=== PATIENT | male | born 1985 | race Caucasian/White ===

== ENCOUNTER 2019-10-15 20:01 | Emergency (ER) | payer OTHER ==
[2019-10-15 20:11] VITALS: BP 144/78
--- NOTE | 2019-10-15 20:39 | EDM.PDOC ---
ED HPI GENERAL MEDICAL PROBLEM - General Chief Complaint: Chest Pain Stated Complaint: CHEST PAIN Time Seen by Provider: 10/15/19 20:14 Source of Information: Reports: Patient History Limitations: Reports: No Limitations - History of Present Illness INITIAL COMMENTS - FREE TEXT/NARRATIVE: Mr. Stoner is a very pleasant 34-year-old gentleman who who presents the ED stating that he developed sharp left upper chest pain around 17:30 this evening, while in his car. He states that the sensation is a pain, not a discomfort, and that has been coming and going, typically lasting 1 to 2 seconds, then recurring every 5 to 10 seconds. He has not identified any modifiers. No associated symptoms, such as dyspnea, nausea, diaphoresis, or sense of impending doom. No prior similar symptoms. The patient did not take any [id number] or home remedies prior to coming to the ED. Here in the ED, the patient's initial BP is found to be mildly elevated at 144/78, otherwise, he is hemodynamically stable, afebrile, saturating 96% on room air. Other than today's chest pain, the patient denies recent fever, chills, sore throat, ear pain, nasal or sinus congestion, cough, dyspnea, palpitations, nausea, vomiting, constipation, diarrhea, abdominal pain, urinary symptoms, recent weight gain or weight loss, recent bloody bowel movements or black bowel movements, recent joint aches, headaches, or rashes. The patient's PCP is BEN Pal. Left Upper Chest Pain Score (Numeric/FACES): 3 - Related Data Allergies Allergy/AdvReac Type Severity Reaction Status Date / Time No Known Allergies Allergy Verified 10/15/19 20:11 Home Meds: Home Meds . [No Known Home Meds] 10/15/19 [History] Past Medical History Respiratory History: Reports: Sleep Apnea (nightly CPAP 12 or 14) Endocrine/Metabolic History: Reports: Obesity/BMI 30+ - Past Surgical History HEENT Surgical History: Reports: Myringotomy w Tube(s) (bilateral) Social & Family History - Family History Cardiac: Reports: High Cholesterol, Hypertension, [place] - Tobacco Use Smoking Status *Q: Never Smoker Second Hand Smoke Exposure: No - Caffeine Use Caffeine Use: Reports: Coffee - Alcohol Use Alcohol Use History: Yes Alcohol Use Frequency: Socially - Recreational Drug Use Recreational Drug Use: No - Living Situation & Occupation Living situation: Reports: , with Spouse, with Family (2 kids) Occupation: Employed ([employer]) ED ROS GENERAL - Review of Systems Review Of Systems: Comprehensive ROS is negative, except as noted in HPI. ED EXAM, GENERAL - Physical Exam Exam: See Below Exam Limited By: No Limitations General Appearance: Alert, WD/WN, No Apparent Distress Eye Exam: Bilateral Eye: EOMI, Normal Inspection Ears: Normal External Exam, Hearing Grossly Normal Nose: Normal Inspection Throat/Mouth: Normal Inspection, Normal Lips, Normal Voice, No Airway Compromise Head: Atraumatic, Normocephalic Neck: Normal Inspection, Full Range of Motion Respiratory/Chest: No Respiratory Distress, Lungs Clear, Normal Breath Sounds, No Accessory Muscle Use, Chest Non-Tender (additionally, pain is not induced with the patient pressing his hands together in front of his chest with outstretched arms, or by crossing his left upper extremity across his chest) Cardiovascular: Normal Peripheral Pulses, Regular Rate, Rhythm, No Edema, No Gallop, No JVD, No Murmur, No Rub Peripheral Pulses: 3+: Radial (L), Radial (R) GI/Abdominal: Normal Bowel Sounds, Soft, Non-Tender, No Organomegaly, No Distention, No Abnormal Bruit, No Mass (Male) Exam: Deferred Rectal (Males) Exam: Deferred Back Exam: Normal Inspection, Full Range of Motion, NT Extremities: Normal Inspection, Normal Range of Motion, No Pedal Edema, Normal Capillary Refill Neurological: Alert, Oriented, Normal Cognition, No Motor/Sensory Deficits Psychiatric: Normal Affect Skin Exam: Warm, Dry, Intact, Normal Color, No Rash EKG INTERPRETATION EKG Date: 10/15/19 Time: 20:24 Rhythm: NSR Rate (Beats/Min): 67 [place]: Normal P-Wave: Present QRS: Other (Late transition) ST-T: Normal QT: Normal Comparison: NA - No Prior EKG Course - Vital Signs Last Recorded V/S: Last Vital Signs Temp 36.5 C 10/15/19 20:08 Pulse 71 10/15/19 22:45 Resp 27 H 10/15/19 22:45 BP 144/78 H 10/15/19 20:08 Pulse Ox 96 10/15/19 22:45 - Orders/Labs/Meds Orders: Active Orders 24 hr Category Date Time Status EKG Documentation Completion [RC] ASDIRECTED Care 10/15/19 20:31 Active Chest 2V [CR] Stat Exams 10/15/19 20:34 Taken EKG 12 Lead [EK] Stat Ther 10/15/19 20:31 Ordered Labs: Laboratory Tests 10/15/19 10/15/19 Range/Units 20:50 20:50 D-Dimer, Quantitative < 0.19 L (0.19-0.50) mg/L Sodium 142 (136-145) mEq/L Potassium 3.8 (3.5-5.1) mEq/L Chloride 104 (98-107) mEq/L Carbon Dioxide 28 (21-32) mEq/L Anion Gap 13.8 (5-15) BUN 19 H (7-18) mg/dL Creatinine 1.1 (0.7-1.3) mg/dL Est Cr Clr Drug Dosing 107.94 mL/min Estimated GFR (MDRD) > 60 (>60) mL/min BUN/Creatinine Ratio 17.3 (14-18) Glucose 131 H (74-106) mg/dL Calcium 8.2 L (8.5-10.1) mg/dL Total Bilirubin 0.5 (0.2-1.0) mg/dL AST 38 H (15-37) U/L ALT 89 H (16-63) U/L Alkaline Phosphatase 72 (46-116) U/L Troponin I < 0.017 (0.00-0.056) ng/mL Total Protein 7.1 (6.4-8.2) g/dl Albumin 3.8 (3.4-5.0) g/dl Globulin 3.3 gm/dL Albumin/Globulin Ratio 1.2 (1-2) - Re-Assessments/Exams Free Text/Narrative Re-Assessment/Exam: 10/15/19 20:35 As above, the patient developed sharp, briefly intermittent upper left chest pain around 17:30 tonight. His presentation is not suggestive of an acute cardiac event, and his ECG is completely normal. I have ordered a work-up that includes a D-dimer and a chest x-ray. 10/15/19 22:46 Two-view chest radiograph appears to be grossly normal. The cardiac silhouette is within normal limits. No pulmonary vascular congestion. No pleural effusions. No focal infiltrate. No pneumothorax. Formal read per the Radiologist pending. The patient's CMP is remarkable for a BUN slightly elevated at 19, but with a Cr normal at 1.1. His blood glucose is slightly elevated at 131. His AST/ALT are slightly elevated at 38/89, respectively, with the remainder of his CMP being unremarkable. His troponin is undetectably low. His D-dimer is undetectably low. 10/15/19 22:48 Test results discussed with the patient. As above, today's work-up is unremarkable. Physical exam, and ER tests, I suspect that his chest pain is musculoskeletal in etiology. I recommended that he take [id number] ibuprofen as needed for discomfort. I also offered to prescribe for him a muscle relaxant, but he declined. He would prefer to stick with just ibuprofen. I will discharge him home. Departure - Departure Time of Disposition: 22:49 Disposition: Home, Self-Care 01 Condition: Good Clinical Impression: Musculoskeletal chest pain - Discharge Information *PRESCRIPTION DRUG MONITORING PROGRAM REVIEWED*: Not Applicable *COPY OF PRESCRIPTION DRUG MONITORING REPORT IN PATIENT TRINITY: Not Applicable Instructions: Chest Wall Pain, [id number] Referrals: Viktor Iqbal PA-C [Primary Care Provider] - Forms: ED Department Discharge Additional Instructions: You were seen in the emergency room after developing sharp intermittent left- sided chest pain. Work-up in the ER included blood work, a chest x-ray, and an ECG. Your entire work-up was unremarkable. You have not suffered a heart attack. You do not have a blood clot in your lungs. You do not have pneumonia or a collapsed lung. Based on your history, physical exam, and ER tests, the cause of your left-sided chest pain is most likely musculoskeletal. We recommend that you take kxsj-ztz-jdyrjeg ibuprofen, 3 tablets (600 mg) up to every 8 hours, with food, as needed for discomfort. If any other problems, please do not hesitate to return to the ER. Sepsis Event Note (ED) - Evaluation Sepsis Screening Result: No Definite Risk - Focused Exam Vital Signs: Vital Signs Temp Pulse Resp BP Pulse Ox 10/15/19 22:45 71 27 H 96 10/15/19 20:08 36.5 C 75 20 144/78 H 96 - My Orders Last 24 Hours: My Active Orders 10/15/19 20:31 EKG Documentation Completion [RC] ASDIRECTED EKG 12 Lead [EK] Stat 10/15/19 20:34 Chest 2V [CR] Stat - Assessment/Plan Last 24 Hours: My Active Orders 10/15/19 20:31 EKG Documentation Completion [RC] ASDIRECTED EKG 12 Lead [EK] Stat 10/15/19 20:34 Chest 2V [CR] Stat
[2019-10-15 23:12] VITALS: PULSE 71
--- NOTE | 2019-10-16 07:05 | CR ---
Chest: 2 views of the chest were obtained. Comparison: No prior chest imaging is available. Heart size and mediastinum are normal. Slight scarring is noted within the left base. Lungs otherwise are clear. Bony structures are unremarkable. Impression: 1. Nothing acute is seen on 2 view chest x-ray. Diagnostic code #2 This report was dictated in MDT
== END 2019-10-15 22:56 | disposition home or self-care (01) ==
LOC: JD.ED 20:01
DX: R07.89 Other chest pain (principal); E66.9 Obesity, unspecified; Z68.41 Body mass index [BMI] 40.0-44.9, adult
CPT/HCPCS: 36415; 71046; 71046-26; 80053; 84484; 85379; 93005; 93010; 99282; 99285-25

== ENCOUNTER 2020-05-13 07:04 | Day surgery (SDC) | payer OTHER ==
[~2020-05-13 07:04] MED LIST: Lactated Ringers 1,000 ML IV SCH; Lidocaine 1%/Sod Bicarbonate in NS 8.4% 1 ML Syringe IDERM PRN; Sodium Chloride 0.9% 10 ML Syringe FLUSH PRN
[2020-05-13] MEDS ORDERED: Bupivacaine 0.5%/EPINEPHrine 1:200,000 50 ML MDV ONE (07:17)
[2020-05-13] MEDS ORDERED: fentaNYL 250 MCG/5 ML SDV ONE (07:42)
[2020-05-13] MEDS ORDERED: Propofol 200 MG/20 ML SDV ONE (07:42)
[2020-05-13] MEDS ORDERED: Midazolam 1 MG/ML 2 ML SDV ONE (07:42)
[2020-05-13] MEDS ORDERED: Lidocaine 1% 4 ML ONE (07:49)
--- NOTE | 2020-05-13 07:56 | PCM.HP.2 ---
H&P History of Present Illness - General Date of Service: 05/13/20 Admit Problem/Dx: right breast lesion Source of Information: Patient History Limitations: Reports: No Limitations - History of Present Illness Initial Comments - Free Text/Narative: Mr. Smith was seen in clinic over one month ago regarding a right breast lesion he noted a few months ago. It is sometimes tender. He thinks maybe it has grown a little in size since he was seen. An ultrasound from a few weeks ago shows a small suspicious lesion just deep to the nipple for which excisional biopsy is recommended. - Related Data Allergies/Adverse Reactions: Allergies Allergy/AdvReac Type Severity Reaction Status Date / Time No Known Allergies Allergy Verified 05/13/20 07:43 Home Medications: Home Meds . [No Known Home Meds] 10/15/19 [History] Past Medical History - Past Health History Medical/Surgical History: Denies Medical/Surgical History HEENT History: Reports: None Cardiovascular History: Reports: High Cholesterol Respiratory History: Reports: Sleep Apnea Gastrointestinal History: Reports: None Other Genitourinary History: breast lump HEALTHCARE PROF History: Reports: None Musculoskeletal History: Reports: None Neurological History: Reports: None Psychiatric History: Reports: None Endocrine/Metabolic History: Reports: Obesity/BMI 30+ Hematologic History: Reports: None Immunologic History: Reports: None Oncologic (Cancer) History: Reports: None Dermatologic History: Reports: None - Infectious Disease History Infectious Disease History: Reports: Novel Coronavirus - Past Surgical History Head Surgeries/Procedures: Reports: None HEENT Surgical History: Reports: Myringotomy w Tube(s) Cardiovascular Surgical History: Reports: None Respiratory Surgical History: Reports: None GI Surgical History: Reports: None Female Surgical History: Reports: None Male Surgical History: Reports: None Endocrine Surgical History: Reports: None Neurological Surgical History: Reports: None Musculoskeletal Surgical History: Reports: None Oncologic Surgical History: Reports: None Dermatological Surgical History: Reports: None Social & Family History - Family History Cardiac: Reports: High Cholesterol, Hypertension, [place] - Tobacco Use Tobacco Use Status *Q: Never Tobacco User - Caffeine Use Caffeine Use: Reports: None - Recreational Drug Use Recreational Drug Use: No Drug Use in Last 12 Months: No - Living Situation & Occupation Living situation: Reports: , with Spouse, with Family (2 kids) Occupation: Employed ([employer]visor) H&P Review of Systems - Review of Systems: Review Of Systems: See Below General: Reports: No Symptoms HEENT: Reports: No Symptoms Pulmonary: Reports: No Symptoms Cardiovascular: Reports: No Symptoms Gastrointestinal: Reports: No Symptoms Genitourinary: Reports: No Symptoms Musculoskeletal: Reports: No Symptoms Skin: Reports: No Symptoms Psychiatric: Reports: No Symptoms Neurological: Reports: No Symptoms Hematologic/Lymphatic: Reports: No Symptoms Immunologic: Reports: No Symptoms Exam - Exam Exam: See Below - Vital Signs Vital Signs: Last Vital Signs Temp 36.6 C 05/13/20 07:10 Pulse 73 05/13/20 07:10 Resp 16 05/13/20 07:10 BP 140/76 05/13/20 07:10 Pulse Ox 95 05/13/20 07:10 - Exam Quality Assessment: Supplemental Oxygen General: Alert, Oriented HEENT: Conjunctiva Clear Neck: Supple, Trachea Midline Lungs: Clear to Auscultation, Normal Respiratory Effort Cardiovascular: Regular Rate, Regular Rhythm Back Exam: Normal Inspection Extremities: Normal Inspection Skin: Warm, Dry Neuro Extensive - Mental Status: Alert, Oriented x3 Sepsis Event Note - Evaluation Sepsis Screening Result: No Definite Risk - Focused Exam Vital Signs: Vital Signs Temp Pulse Resp BP Pulse Ox 05/13/20 07:10 36.6 C 73 16 140/76 95 Problem List Initiated/Reviewed/Updated: Yes Orders Last 24hrs: Active Orders 24 hr Category Date Time Status Peripheral IV Care [RC] . DIRECTED Care 05/13/20 07:00 Active Peripheral IV Care [RC] . DIRECTED Care 05/13/20 07:00 Active Verify Patient Consent Obtain [RC] ASDIRECTED Care 05/13/20 07:00 Active Verify Patient Consent Obtain [RC] ASDIRECTED Care 05/13/20 07:00 Active Lactated Ringers [Ringers, Lactated] 1,000 ml Med 05/13/20 07:00 Active IV ASDIRECTED Lidocaine 1%/Sod Bicarbonate [Buffered Lidocaine 1% in Med 05/13/20 07:00 Ac tive NS 8.4%] 0.25 ml IDERM ONETIME PRN Sodium Chloride 0.9% [Saline Flush] Med 05/13/20 07:00 Active 10 ml FLUSH ASDIRECTED PRN Medication Administration Instruction [OM.PC] Routine Oth 05/13/20 07:00 Ordered Medication Administration Instruction [OM.PC] Routine Oth 05/13/20 07:00 Ordered Peripheral IV Insertion Adult [OM.PC] Routine Oth 05/13/20 07:00 Ordered Peripheral IV Insertion Adult [OM.PC] Routine Oth 05/13/20 07:00 Ordered Medication Orders Lactated Ringer's (Ringers, Lactated) 1,000 mls @ 125 mls/hr IV ASDIRECTED JUANITA Stop: 05/13/20 23:00 Last Admin: 05/13/20 07:15 Dose: 125 mls/hr Documented by: ALEKSANDRA Lidocaine/Sodium Bicarbonate (Buffered Lidocaine 1% In Ns 8.4%) 0.25 ml IDERM ONETIME PRN PRN Reason: Prior to IV Start Stop: 05/13/20 18:00 Last Admin: 05/13/20 07:15 Dose: 0.25 ml Documented by: ALEKSANDRA Sodium Chloride (Saline Flush) 10 ml FLUSH ASDIRECTED PRN PRN Reason: Keep Vein Open Stop: 05/13/20 18:00 Assessment/Plan Comment:: Suspicious right breast lesion. Plan for excisional biopsy today. - Mortality Measure Prognosis:: Good
[2020-05-13] MEDS ORDERED: ceFAZolin 1 GM Vial ONE (08:08)
[2020-05-13] MEDS ORDERED: Ondansetron 4 MG/2 ML SDV ONE (08:21)
--- NOTE | 2020-05-13 08:47 | PCM.PREANE ---
Preanesthetic Assessment - Procedure Proposed Procedure: Right breast biopsy - Anesthesia/Transfusion/Family Hx Anesthesia History: Prior Anesthesia Without Reaction - Review of Systems General: No Symptoms Pulmonary: No Symptoms Cardiovascular: No Symptoms Gastrointestinal: No Symptoms Neurological: No Symptoms Other: Reports: None - Physical Assessment NPO Status Date: 05/12/20 NPO Status Time: 18:00 Vital Signs: Last Vital Signs Temp 97.8 F 05/13/20 07:10 Pulse 73 05/13/20 07:10 Resp 16 05/13/20 07:10 BP 140/76 05/13/20 07:10 Pulse Ox 95 05/13/20 07:10 Height: 1.88 m Weight: 146.51 kg ASA Class: 2 Mental Status: Alert & Oriented x3 Airway Class: Mallampati = 2 Dentition: Reports: Normal Dentition ROM/Head Extension: Full Lungs: Clear to Auscultation, Normal Respiratory Effort Cardiovascular: Regular Rate, Regular Rhythm - Allergies Allergies/Adverse Reactions: Allergies Allergy/AdvReac Type Severity Reaction Status Date / Time No Known Allergies Allergy Verified 05/13/20 07:43 - Acknowledgements Anesthesia Type Planned: General Anesthesia, MAC Pt an Appropriate Candidate for the Planned Anesthesia: Yes Alternatives and Risks of Anesthesia Discussed w Pt/Guardian: Yes Pt/Guardian Understands and Agrees with Anesthesia Plan: Yes PreAnesthesia Questionnaire - Past Health History Medical/Surgical History: Denies Medical/Surgical History HEENT History: Reports: None Cardiovascular History: Reports: High Cholesterol Respiratory History: Reports: Sleep Apnea Gastrointestinal History: Reports: None Other Genitourinary History: breast lump [employer]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: Reports: None Musculoskeletal History: Reports: None Neurological History: Reports: None Psychiatric History: Reports: None Endocrine/Metabolic History: Reports: Obesity/BMI 30+ Hematologic History: Reports: None Immunologic History: Reports: None Oncologic (Cancer) History: Reports: None Dermatologic History: Reports: None - Infectious Disease History Infectious Disease History: Reports: Novel Coronavirus - Past Surgical History Head Surgeries/Procedures: Reports: None HEENT Surgical History: Reports: Myringotomy w Tube(s) Cardiovascular Surgical History: Reports: None Respiratory Surgical History: Reports: None GI Surgical History: Reports: None Female Surgical History: Reports: None Male Surgical History: Reports: None Endocrine Surgical History: Reports: None Neurological Surgical History: Reports: None Musculoskeletal Surgical History: Reports: None Oncologic Surgical History: Reports: None Dermatological Surgical History: Reports: None - SUBSTANCE USE Tobacco Use Status *Q: Never Tobacco User Recreational Drug Use History: No - HOME MEDS Home Medications: Home Meds oxyCODONE 5 mg PO Q4H PRN #10 tab 05/13/20 [Rx] - CURRENT (IN HOUSE) MEDS Current Meds: Current Medications Lactated Ringer's (Ringers, Lactated) 1,000 mls @ 125 mls/hr IV ASDIRECTED [facility] Stop: 05/13/20 23:00 Last Admin: 05/13/20 07:15 Dose: 125 mls/hr Documented by: Lidocaine/Sodium Bicarbonate (Buffered Lidocaine 1% In Ns 8.4%) 0.25 ml IDERM ONETIME PRN PRN Reason: Prior to IV Start Stop: 05/13/20 18:00 Last Admin: 05/13/20 07:15 Dose: 0.25 ml Documented by: Sodium Chloride (Saline Flush) 10 ml FLUSH ASDIRECTED PRN PRN Reason: Keep Vein Open Stop: 05/13/20 18:00 Discontinued Medications Bupivacaine HCl/Epinephrine Bitart (Marcaine 0.5%/Epinephrine 1:200,000) Confirm Administered Dose 50 ml .ROUTE .STK-MED ONE Stop: 05/13/20 07:18 Cefazolin Sodium (Ancef) Confirm Administered Dose 3 gm .ROUTE .STK-MED ONE Stop: 05/13/20 08:09 Fentanyl (Sublimaze) Confirm Administered Dose 250 mcg .ROUTE .STK-MED ONE Stop: 05/13/20 07:43 Glycopyrrolate (Robinul) Confirm Administered Dose 0.4 mg .ROUTE .STK-MED ONE Stop: 05/13/20 07:50 Lactated Ringer's (Ringers, Lactated) 1,000 mls @ 125 mls/hr IV ASDIRECTED [facility] Stop: 04/24/20 23:00 Lidocaine HCl (Xylocaine-Mpf 1%) Confirm Administered Dose 4 mls @ as directed .ROUTE .STK-MED ONE Stop: 05/13/20 07:50 Lidocaine/Sodium Bicarbonate (Buffered Lidocaine 1% In Ns 8.4%) 0.25 ml IDERM ONETIME PRN PRN Reason: Prior to IV Start Stop: 04/24/20 18:00 Midazolam HCl (Versed 1 Mg/Ml) Confirm Administered Dose 6 mg .ROUTE .STK-MED ONE Stop: 05/13/20 07:43 Ondansetron HCl (Zofran) Confirm Administered Dose 8 mg .ROUTE .STK-MED ONE Stop: 05/13/20 08:22 Propofol (Diprivan 20 Ml) Confirm Administered Dose 600 mg .ROUTE .STK-MED ONE Stop: 05/13/20 07:43 Sodium Chloride (Saline Flush) 10 ml FLUSH ASDIRECTED PRN PRN Reason: Keep Vein Open Stop: 04/24/20 18:00
--- NOTE | 2020-05-13 09:06 | PCM48HPAN ---
Post Anesthesia Note - EVALUATION WITHIN 48HRS OF ANESTHETIC Vital Signs in Normal Range: Yes Patient Participated in Evaluation: Yes Respiratory Function Stable: Yes Airway Patent: Yes Cardiovascular Function Stable: Yes Hydration Status Stable: Yes Pain Control Satisfactory: Yes Nausea and Vomiting Control Satisfactory: Yes Mental Status Recovered: Yes Vital Signs: Last Vital Signs Temp 97.5 F 05/13/20 08:56 Pulse 94 05/13/20 08:56 Resp 14 05/13/20 08:56 BP 147/52 H 05/13/20 08:56 Pulse Ox 94 L 05/13/20 08:56
--- NOTE | 2020-05-13 09:17 | PCM.PRNOTE ---
- Free Text/Narrative Note: Date: 05/13/2020 Operation: right breast excisional biopsy Surgeon: Tigre Velez MD Findings: difficult to appreciate subcutaneous mass lesion deep to lateral aspect of right nipple. No discrete lesion was well visualized on intraoperative ultrasound. Wide local excision of area in question performed, and specimen oriented with silk suture. Detailed Report: The patient was taken to the OR and placed supine. Monitored anesthesia care was initiated. Time out was performed and the right chest was prepped and draped in usual sterile fashion. 20 cc 0.5% marcaine with epinephrine was injected intradermally around the lateral edge of the nipple-areolar complex. A 3.5 cm curvilinear incision along the lateral aspect of the areola was made with the scalpel. Skin flaps were developed with monopolar energy. Ultrasound did not show an obvious discrete lesion in the area of concern. Old ultrasound report and images were reviewed. A 10 blade scalpel was then used to excise a cylindrical core of breast tissue encompassing the palpable area of concern which lay deep to and lateral to the nipple. The specimen measured approximately 3 cm in diameter and 4 cm deep. Silk sutures were placed to orient the specimen; short=superior and long=lateral. The wound was hemostatic after directed monopolar energy. There was no longer any palpable subcutaneous lesion. The wound was irrigated with saline and closed in layers with interrupted deep dermal vicryl sutures and running subcuticular vicryl suture. The wound was dressed with dermabond. The patient tolerated the procedure well.
[2020-05-13 10:28] VITALS: BP 119/74; PULSE 65
== END 2020-05-13 11:00 | disposition home or self-care (01) ==
LOC: JD.SDS 07:04
PROVIDERS: ATTEND Surgery
DX: N62 Hypertrophy of breast (principal); E78.00 Pure hypercholesterolemia, unspecified; E66.9 Obesity, unspecified; Z68.41 Body mass index [BMI] 40.0-44.9, adult
CPT/HCPCS: 19300; J0690; J2250; J2405; J2704; J3010; J3490; J7120; 00400

== ENCOUNTER 2022-09-03 01:25 | Emergency (ER) | payer OTHER ==
[2022-09-03] MEDS ORDERED: Morphine 4 MG/ML Syringe IVPUSH ONE (01:46)
[2022-09-03] MEDS ORDERED: Ondansetron 4 MG/2 ML SDV IVPUSH ONE (01:47)
[2022-09-03 01:52] LABS: BASOPHILS ABSOLUTE AUTO 0.06 K/mm3 (0.01-0.08); BASOPHILS PERCENT AUTO 0.7 % (0.1-1.2); EOSINOPHILS ABSOLUTE AUTO 0.24 K/mm3 (0.04-0.54); EOSINOPHILS PERCENT AUTO 2.6 (0.8-7.0); HEMATOCRIT 43.6 % (40.1-51.0); IMMATURE GRAN ABSOLUTE AUTO 0.01 K/mm3 (0.00-0.10); IMMATURE GRAN PERCENT AUTO 0.1 % (<=1.0); LYMPHOCYTES PERCENT AUTO 54.3 % (21.8-53.1); MEAN CORPUSCULAR HEMOGLOBIN 28.2 pg (25.7-32.2); MEAN CORPUSCULAR HGB CONC 33.5 g/dl (32.2-35.5); MEAN CORPUSCULAR VOLUME 84.2 fl (79.0-92.2); MEAN PLATELET VOLUME 9.9 fl (9.4-12.3); MONOCYTES ABSOLUTE AUTO 0.82 K/mm3 (0.30-0.82); MONOCYTES PERCENT AUTO 8.9 % (5.3-12.2); NEUTROPHILS ABSOLUTE AUTO 3.08 K/mm3 (1.78-5.38); NEUTROPHILS PERCENT AUTO 33.4 % (34.0-67.9); PLATELET COUNT,PLT 248 K/mm3 (163-337); RED BLOOD CELL COUNT 5.18 M/mm3 (4.63-6.08); WHITE BLOOD CELL COUNT,WBC 9.21 K/mm3 (4.23-9.07)
[2022-09-03 01:57] LABS: HEMOGLOBIN 14.6 gm/dl (13.7-17.5)
[2022-09-03 02:04] LABS: INR 0.99; PROTHROMBIN TIME 10.6 SECONDS (9.7-12.0)
[2022-09-03 02:17] LABS: D-DIMER QUANTITATIVE 0.6 mg/L (0.19-0.50)
[2022-09-03 02:25] LABS: ALBUMIN 3.9 g/dl (3.4-5.0); ANION GAP 9.7 (5-15); BILIRUBIN TOTAL 0.6 mg/dL (0.2-1.0); BUN/CREATININE RATIO 16.4 (14-18); CALCIUM 8.6 mg/dL (8.5-10.1); CREATININE 1.1 mg/dL (0.7-1.3); EST CRCL DRUG DOSING (CG) 101.89 mL/min; POTASSIUM,K 3.7 mEq/L (3.5-5.1); PROTEIN TOTAL,TP 7.7 g/dl (6.4-8.2)
[2022-09-03] MEDS ORDERED: Enoxaparin 150 MG/1 ML Syringe SUBCUT ONE (02:37)
[2022-09-03] MEDS ORDERED: Iopamidol 755 Mg/ML 100 ML Bottle IVPUSH ONE (02:43)
[2022-09-03 05:37] VITALS: BP 112/79; PULSE 65
== END 2022-09-03 10:13 | disposition home or self-care (01) ==
LOC: JD.ED 01:25
DX: R07.89 Other chest pain (principal); K76.0 Fatty (change of) liver, not elsewhere classified; R79.89 Other specified abnormal findings of blood chemistry; E66.9 Obesity, unspecified; Z86.16 Personal history of COVID-19; Z68.41 Body mass index [BMI] 40.0-44.9, adult
CPT/HCPCS: 36415; 71045; 71275; 80053; 83690; 84484; 85025; 85379; 85610; 93005; 96372; 96374; 96375; 99285; J1650; J2270; J2405; Q9967